=== PATIENT | male | born 1970 | race Caucasian/White ===

== ENCOUNTER 2019-01-17 19:41 | Observation (INO) | payer OTHER ==
[~2019-01-17 19:41] MED LIST: Dexamethasone 20 MG/5 ML VIAL ONE; Ketorolac Tromethamine 30 MG/ML VIAL ONE; Lidocaine 1% PF 5 ML VIAL ONE; Ondansetron PF 4 MG/2 ML Vial ONE; PROPOFOL 200 MG/20 ML VIAL ONE; Succinylcholine Chloride 20 MG/ML 10 ml SYRINGE FS ONE
[2019-01-17] MEDS ORDERED: Adacel (T-DAP) 0.5 ML SYRINGE ONE (20:11)
--- NOTE | 2019-01-17 20:23 | RAD ---
THREE VIEWS RIGHT HAND: 01/17/19 HISTORY: Trauma, right thumb. AP, lateral and oblique views right thumb is obtained. Images demonstrate soft tissue injury and comminuted fracture involving the proximal portion distal phalanx first digit right hand. There is a comminuted intra-articular fracture involving the proxima l portion of the distal phalanx. The rest of the right hand is unremarkable. IMPRESSION: Comminuted fracture involving proximal and intra-articular portion distal phalanx first digit right h and. POS: [facility]
[2019-01-17] MEDS ORDERED: Famotidine/PF 20 mg/2ml Vial ONE (22:54)
[2019-01-17] MEDS ORDERED: Fentanyl 100 MCG/2 ML VIAL ONE (22:54)
[2019-01-18] MEDS ORDERED: Promethazine HCl 25 MG/ML VIAL IM PRN ×2 (00:14→02:07)
[2019-01-18] MEDS ORDERED: Ondansetron HCl/PF 4 MG/2 ML Vial IVP PRN (00:14)
[2019-01-18] MEDS ORDERED: Promethazine HCl 25 MG/ML VIAL SLOW IVP PRN (00:14)
[2019-01-18] MEDS ORDERED: Fentanyl 100 MCG/2 ML VIAL ONE (00:42)
[2019-01-18] MEDS ORDERED: Morphine 4 MG/ML VIAL SLOW IVP PRN (02:07)
[2019-01-18] MEDS ORDERED: Fentanyl 100 MCG/2 ML VIAL SLOW IVP PRN (02:07)
[2019-01-18] MEDS ORDERED: Morphine 2 MG/ML SYRINGE IVP PRN (02:07)
[2019-01-18] MEDS ORDERED: Bisacodyl 10 MG SUPP PR PRN (02:07)
[2019-01-18] MEDS ORDERED: Communication Order-Pharmacy FS SCH (02:07)
[2019-01-18] MEDS ORDERED: Ondansetron PF 4 MG/2 ML Vial IV PRN (02:07)
[2019-01-18] MEDS ORDERED: HYDROcodone/Acetaminophen 5/325 mg Tablet PO PRN (02:07)
[2019-01-18] MEDS ORDERED: Acetaminophen 325 MG TAB PO PRN (02:07)
[2019-01-18] MEDS ORDERED: traMADol HCl 50 MG TAB PO PRN ×2 (02:07)
[2019-01-18] MEDS ORDERED: Milk Of Magnesia 30 ML UDCUP PO PRN (02:07)
[2019-01-18 02:19] VITALS: BMI 26.6
[2019-01-18] MEDS: CEFAZOLIN 2 GM in Premix Bag 1 BAG IVPB SCH ×2 (02:46→09:07)
[2019-01-18] MEDS: HYDROcodone/Acetaminophen 5/325 mg Tablet PO PRN ×2 (02:46→11:54)
[2019-01-18] MEDS ORDERED: TETANUS AND DIPHTHERIA TOX/PF 0.5 ML DISP.SYRIN IM SCH (09:00)
--- NOTE | 2019-01-18 09:04 | RAD ---
INTRAOPERATIVE FLUOROSCOPY VIEWS OF RIGHT THUMB: CLINICAL HISTORY: Surgical fixation of amputation injury FINDINGS: K wires traverse the thumb distal phalanx with near-anatomic alignment. Fracture lucency is seen. IMPRESSION: Intraoperative fluoroscopic imaging for pinning of thumb distal phalangeal fracture. Transcribed Date/Time: 01/18/2019 10:01 AM
[2019-01-18 11:31] VITALS: BP 126/78; TEMP 98.2
--- NOTE | 2019-01-19 08:01 | HP ---
CHIEF COMPLAINT: Right thumb pain. HISTORY OF PRESENT ILLNESS: Mr. 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 today. The patient had alcohol today, but was NPO at 7:00. No previous injury or surgery to this thumb. PAST MEDICAL HISTORY: None. PAST SURGICAL HISTORY: Tonsillectomy, suspected cyst removal from the wrist, and appendectomy. MEDICATIONS: None. ALLERGIES: CODEINE, GETS HIVES. NO PROBLEMS WITH HYDROCODONE PER REPORT. SOCIAL HISTORY: Positive history of alcohol, several beers a day. Denies smoking. Denies illicit drug use. 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 PHYSICAL EXAMINATION: GENERAL: The patient is resting comfortably in bed. VITAL SIGNS: Afebrile. GENERAL: Alert and oriented male, in no acute distress. EXTREMITIES: Right upper extremity, the patient has a crush injury of his right thumb with an open laceration extending on the ulnar side of the thumb. Patient had an injury to the patient's eponychium as well as his nail bed as well as his nail plate. The patient has brisk cap refill, less than 3 seconds with dopplerable vessels both on the ulnar and radial aspect of the thumb. He has sensation grossly throughout the thumb with stabilization of the IP joint. The patient is able to flex and extend the digit. No obvious open or exposed bone. RADIOGRAPHS: Show a crush injury to the pilon variant to the distal phalanx of the thumb with shaft exposed. IMPRESSION: Open crush injury to the thumb with nail bed injury. Intact neurovascular status on the radial and ulnar aspects. ASSESSMENT AND PLAN: The patient was taken to the OR for an I and D of the thumb. We will plan to wash the thumb, pin both from a radial to ulnar aspect of the thumb as well as from distal to proximal with a small K-wire to help with pinning the thumb into position and helping to stabilize the thumb. I will wash the wounds and close and perform a nail bed repair as needed. The patient will be admitted overnight for 24 hours of antibiotics and make sure he receives tetanus. I discussed with the patient the risks and benefits of surgery, failure of healing, need for RetroFusion versus amputation, damage to neurovascular structures, continued pain, potential loss of limb, risk of blood clots as well as loss of life or limb. The patient understood the risks and benefits. He is on-call to the OR. Job ID: [id number] MTDD
--- NOTE | 2019-01-19 12:57 | OP ---
DATE OF PROCEDURE: 01/18/2019 PREOPERATIVE DIAGNOSIS: Right thumb crush injury with open fracture laceration. POSTOPERATIVE DIAGNOSES: Open right thumb distal phalanx crush injury with open fracture, 4 cm total laceration, nail root injury. No nail bed injury. Damage to the eponychium and paronychia on the radial aspect of the hand 4 cm total laceration closure. PROCEDURE PERFORMED: 1. Irrigation and dedribedment, open fracture. 2. Pinning, distal phalanx. 3. Closure of 4 cm laceration with incorporation of nail bed. 4. Short-arm splint. ANESTHESIA: Dr. Fausto Resendez. The patient received general intubation. ESTIMATED BLOOD LOSS: 15 mL. TOURNIQUET TIME: 10 minutes. ANTIBIOTICS: Ancef 2 g. IMPLANTS: 245 K-wires transfixing. COMPLICATIONS: None. HISTORY OF PRESENT ILLNESS: Mr. Ibarra is a 48-year-old male with a crush injury to his right thumb, putting up T posts, he had alcohol, but no food. 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 He had sensation intact to his thumb as well as brisk cap refill. Good Doppler pulses on both sides. The patient's open fracture, I discussed with him that I would perform a washout, pin the fracture as needed, close all the lacerations and perform nailbed repair as needed. I discussed the patient risks and benefits of surgery to include pain, scar, bleeding, infection, damage to vital structures, damage to the nail bed, need for further surgeries, loss of thumb and need for further surgeries, loss of life or limb. The patient understood the risks and benefits of this procedure and elected to proceed. He received his antibiotics preop. DESCRIPTION OF PROCEDURE: After time-out was performed designating the patient' s right upper extremity as the operative site based on site, consents, and markings, tourniquet was brought up for 10 minutes. I washed the wound thoroughly. I debrided the open fracture with a curette and lightly, washed with 2 L of fluid through the thumb, over the skin and subcutaneous tissue. I then let the Tourniquet down. There was no excessive bleeding. Placing a 045 K-wire passed antegrade down through the distal fracture fragment up to the tip. I then placed to help reduce the fracture from medial and lateral and pinned the fracture fragment to the proximal 2 segments into the patient's proximal phalanx to the articular surface. I then placed a transverse pin to 2 other fragments up to compress them together. I bent those [address]. I then started my closure of the total 4 cm lac. I closed the patient's eponychium through his nail plate with simple Vicryl stitches and closed the radial paronychia back to what is remnant of the skin as well as the remainder of the laceration that propagated back toward the patient's IP crease on the radial aspect, I think a total of 4 cm of laceration, kind of incorporating the nail bed and nail plate had been taken off and see any obvious injuries to the nailbed itself, just to the root at the base of thumb. I then washed and completed my procedure distal tip of the other one closed with soft tissue dressings. I then placed the patient in a thumb spica splint. The patient will be in the splint for about 10 to 14 days, to be admitted overnight for 24 hours of antibiotics, to be discharged to home in the morning. The patient will follow up with me in about 7-10 days to remove the dressing. The pins will be left in place for about 3 weeks, at which time he will be transitioned to a thumb splint. Job ID: [id number] [facility]
--- NOTE | 2019-01-19 12:57 | DIS ---
DATE OF ADMISSION: 01/18/2019 DATE OF DISCHARGE: 01/18/2019 PREOPERATIVE DIAGNOSES: Right thumb crush injury with open fracture laceration. POSTOPERATIVE DIAGNOSES: Open thumb distal phalanx crush injury with open fracture, 4 cm total laceration, nail root injury, no nail bed injury, damage to the eponychium and paronychia of the radial aspect of the hand, 4 cm total laceration closure. PROCEDURES: 1. Irrigation and debridement, open fracture. 2. Pinning, distal phalanx. 3. Closure of 4 cm laceration with incorporation of nail bed. 4. Short-arm splint. HOSPITAL STAY: The patient left the same day later that day. He had no postoperative complications. His pain was tolerable with oral pain medications. DISCHARGE CONDITION: Good/stable. DISPOSITION: Home. FOLLOWUP: Follow up would be in 10 to 14 days or sooner if there are problems and/or concerns. DISCHARGE MEDICATIONS: Given with usage instructions. Job ID: [id number]
== END 2019-01-18 12:00 | disposition home or self-care (01) ==
LOC: ERS 19:41 → SDC/OP 23:00 → SJJU 01-18 01:44
PROVIDERS: ADMIT Orthopaedic Surgery; ATTEND Orthopaedic Surgery
PROC: 0PS Upper Bones, Reposition (ICD-10-PCS; principal; 2019-01-18)
DX: S67.01XA Crushing injury of right thumb, initial encounter (principal); S62.521B Displaced fracture of distal phalanx of right thumb, initial encounter for open fracture; Z88.5 Allergy status to narcotic agent; W31.89XA Contact with other specified machinery, initial encounter
CPT/HCPCS: 76000; 90471; 90715; 96366; 96374; G0378; G0390; J0131; J0690; J1100; J1885; J2001; J2405; J2704; J3010; S0028